=== PATIENT | female | born 2000 | race Caucasian/White ===

== ENCOUNTER 2022-02-03 19:33 | Emergency (ER) | payer OTHER, SELFPAY ==
[2022-02-03 19:45] VITALS: BP 141/81; PULSE 87; RESP 18; TEMP 36.7; O2SAT 100
--- NOTE | 2022-02-03 19:54 | ED.URI ---
HPI - URI/Sore Throat General Chief Complaint: Upper Respiratory Infection Stated Complaint: Sore Throat Time Seen by Provider: 02/03/22 19:45 Source: patient Mode of arrival: ambulatory Limitations: no limitations History of Present Illness HPI Narrative: Kasia is a 21-year-old female patient presenting to clinic today with complaints of a sore throat that began yesterday. She denies any cough or nasal congestion or fevers. She denies any known exposure to anybody with COVID, flu, or strep MD elicited complaint: sore throat Related Data Home Medications Medication Instructions Recorded Confirmed buspirone 10 mg tablet 10 mg PO DAILY 02/03/22 02/03/22 dicyclomine 10 mg capsule 10 mg PO DAILY 02/03/22 02/03/22 montelukast 10 mg tablet 10 mg PO DAILY 02/03/22 02/03/22 norgestimate 0.25 mg-ethinyl 1 tablet PO DAILY 02/03/22 02/03/22 estradiol 35 mcg tablet (Estarylla) Allergies Allergy/AdvReac Type Severity Reaction Status Date / Time No Known Allergies Allergy Verified 02/03/22 19:39 Review of Systems Review of Systems: Pertinent positives per HPI. Patient denies any fever, chills, rash, headache, visual changes, dizziness, cough, shortness of breath, chest pain, palpitations, nausea, vomiting, diarrhea, constipation, abdominal pain, or any urinary issues. PMFSH Comments At the time of my signature, I reviewed and agree with the nursing past medical, surgical, social, and family history. There is no relevant family history pertinent to the patient complaint. Exam Narrative: General: Well-developed, well nourished, in no apparent distress Head: Normocephalic, atraumatic Eyes: Pupils equally round and reactive to light bilaterally, EOM intact, sclera and conjunctive clear, no discharge, lids normal Ears: TMs intact and clear, ear canals clear, no drainage, grossly hearing normal. Nose: Nares patent, clear nasal discharge, no inflammation, no sinus tenderness. Mouth: Oral pharynx without lesions or masses, good dentition, MMM. Oropharynx red with tonsillar swelling and white exudate Neck: Supple, trachea midline, enlargement of anterior cervical nodes, no thyroid masses or goiter palpable. Cardio: Regular rate and rhythm, s1 and s2 normal, no murmur appreciated. Resp: Clear to auscultation bilaterally, no rhonchi, rales, wheezing or rubs Course Course Emergency Course: Portions of this record may have been created with voice recognition software. Level of Care: Express Care Visit Vital Signs Vital signs: Vital Signs Temperature 36.7 C 02/03/22 19:45 Pulse Rate 87 02/03/22 19:45 Respiratory Rate 18 02/03/22 19:45 Blood Pressure 141/81 H 02/03/22 19:45 Pulse Oximetry 100 02/03/22 19:45 Oxygen Delivery Room Air 02/03/22 19:45 Temperature 36.7 C 02/03/22 19:45 Pulse Rate 87 02/03/22 19:45 Respiratory Rate 18 02/03/22 19:45 Blood Pressure 141/81 H 02/03/22 19:45 Pulse Oximetry 100 02/03/22 19:45 Oxygen Delivery Room Air 02/03/22 19:45 Vital signs reviewed MDM - URI/Sore Throat MDM Narrative Medical decision making narrative: At the time of visit patient is resting comfortably on the exam table. Strep screen was obtained and was positive in the clinic. I will place patient on a prescription for amoxicillin. Supportive measures were discussed with the patient she voiced understanding of discharge instructions and agrees to treatment plan. Differential Diagnosis Differential diagnosis: Likely upper respiratory infection, otitis media, sinusitis, viral infection, bronchitis, influenza, pharyngitis and other (COVID) Lab Data Labs: Strep Screen Positive Group A Strep *(Reference Range: Negative)* Discharge Plan Discharge Clinical Impression: Strep pharyngitis Patient Disposition: Home, Self-Care Condition: Stable Instructions: Antibiotic Form, Strep Throat (ED) Additional Instruc
== END 2022-02-03 19:59 | disposition home or self-care (01) ==
PROVIDERS: Emergency Provider Nurse Practitioner Family
DX: J02.0 Streptococcal pharyngitis (principal); Z86.16 Personal history of COVID-19; F41.9 Anxiety disorder, unspecified
CPT/HCPCS: 87880; 99203; G0463

== ENCOUNTER 2024-08-29 09:34 | Outpatient (CLI) | payer OTHER, SELFPAY ==
--- NOTE | ~2024-08-29 | US_ITS ---
EXAMINATION: US OB /maternal detail DATE: 08/29/2024 10:25 INDICATION: survey TECHNIQUE: Multiple obstetric sonographic images performed. FINDINGS: No prior studies for comparison. There is a single living fetus in breech presentation. The placenta is fundal/anterior without place nta previa. Amniotic fluid volume is subjectively normal. cardiac activity and movement is noted with a heart rate of 162 beats per minute. The following anatomy was identified as normal: 4 chamber heart 3 vessel cord cord insertion kidneys urinary bladder stomach spine diaphragm ventricles cisterna magna cerebellum The following biometric data were obtained: BPD: 52mm corresponds to gestational age 21 weeks 5 days. Head circumference: 189 mm corresponds to gestational age 21 weeks 1 days. Abdominal circumference: 169 mm corresponds to gestational age 21 weeks 6 days. Femur length: 34 mm corresponds to gestational age 20 weeks 5 days. Head circumference to abdominal circumference ratio: 1.12 (normal range for expected gestational age is 1.06-1.24). Estimated weight: 416 grams +/- 62 grams using Hadlock method. IMPRESSION: 1: Single living intrauterine with an estimated gestational age of 21weeks 3days by current ultrasound measurements, with an EDC of 01/06/2025 in breech presentation. 2. Normal survey. Reviewed, dictated and finalized at location A. IMPRESSION: 1: Single living intrauterine with an estimated gestational age of 21 weeks 3days by current ultrasound measurements, with an EDC of 01/06/2025 in br eech presentation. 2. Normal survey.
== END 2024-08-29 09:35 | disposition home or self-care (01) ==
LOC: GOSHIMG 09:34
PROVIDERS: PCP Family Medicine; Visit Provider Obstetrics & Gynecology
DX: Z34.92 Encounter for supervision of normal pregnancy, unspecified, second trimester (principal)
CPT/HCPCS: 76805